=== PATIENT | male | born 1985 | race African-American/Black ===

== ENCOUNTER 2020-03-16 08:27 | Outpatient (CLI) | payer OTHER ==
[~2020-03-16] VITALS: Ht 168.9 cm; Wt 83.0 kg
[2020-03-16] MEDS ORDERED: SINGULAIR 110 MG/TAB PO (08:40)
[2020-03-16] MEDS ORDERED: NORVASC 10MG10 MG PO (08:41)
[2020-03-16] MEDS ORDERED: ZYRTEC 10MG10 MG PO (08:41)
[2020-03-16] MEDS ORDERED: TOPROL XL 25MG25 MG PO (08:42)
[2020-03-16] MEDS ORDERED: CRESTOR 10MG10 MG PO (08:43)
[2020-03-16] MEDS ORDERED: ASPIRIN E.C. 8181 MG PO (08:44)
[2020-03-16 09:08] VITALS: BP 127/99; PULSE 57; TEMP 97.5
[2020-03-16] MEDS ORDERED: PROTONIX 40MG T40 MG PO (09:13)
[2020-03-16 09:27] LABS: HEMATOCRIT 46.3 % (42.0-52.0); HEMOGLOBIN 15.1 g/dl (13.5-18.0); MEAN CELL VOLUME 81 fl (80.0-100.0); MEAN CORPUSCULAR HEMOGLOBIN 26 pg (27.0-31.0); MEAN CORPUSCULAR HGB CONC 33 g/dl (33.0-37.0); MEAN PLATELET VOLUME 11.2 fl (7.4-10.4); PLATELET COUNT 163 K/mm3 (130-400); RED BLOOD COUNT 5.73 M/mm3 (4.20-5.60); REDCELL DISTRIBUTION WIDTH-CV 12.9 % (11.5-14.5)
[2020-03-16 09:31] LABS: INR 1.1 (0.8-3.0); PROTHROMBIN TIME 11.8 SECONDS (9.7-12.8)
[2020-03-16 09:39] LABS: CALCIUM 9.6 mg/dL (8.4-10.2); CREATININE, serum 0.99 (0.66-1.25)
[2020-03-16 11:00] VITALS: BP 108/72; PULSE 60
--- NOTE | 2020-03-16 11:00 | NUR ---
REPORT FROM BOY KENDALL, PT IS RESTING WITH EYES CLOSED, DOES RESPOND TO VERBAL STIMULI AND OPENS EYES, SR X3 UP, SUNI LIGHT IN REACH
[2020-03-16 11:15] VITALS: BP 114/76; PULSE 77
[2020-03-16 11:30] VITALS: BP 105/65; PULSE 80
--- NOTE | 2020-03-16 11:30 | NUR ---
PT MORE AWAKE, ANSWERED QUESTIONS, STATES THROAT IS SLIGHTLY SORE, NO OTHER C/O
[2020-03-16 12:00] VITALS: BP 110/75; PULSE 78
--- NOTE | 2020-03-16 12:00 | NUR ---
PT SITS ON SIDE OF BED, TOLERATES WELL, AMB. TO B/R TO VOID, GAIT STEADY. REVIEWED DISCHARGE INST. ON MODERATE SEDATION PRECAUTIONS AND TYLER, NEXT APPT MADE WITH DR ZHANG, NO MED CHANGES, WITH VERBAL UNDERSTANDING. INT D'CD INTACT, PT UP IN ROOM DRESSED, WAITS FOR RIDE
--- NOTE | 2020-03-16 12:35 | NUR ---
PT DISCHARGED VIA W/C TO CAR WITH
== END 2020-03-16 12:35 | disposition home or self-care (01) ==
LOC: COL.RAD 08:27
PROVIDERS: Internal Medicine Cardiovascular Disease
DX: I63.9 Cerebral infarction, unspecified (principal)
CPT/HCPCS: J2250; J2704